=== PATIENT | female | born 1955 | race Native Hawaiian/Other Pacific Islander ===

== ENCOUNTER 2018-12-24 23:40 | Emergency (ER) | payer BC ==
[~2018-12-24] VITALS: Ht 162.6 cm; Wt 90.7 kg
[2018-12-24] MEDS ORDERED: PANTOPRAZOLE 40MG TA PO (23:53)
[2018-12-24] MEDS ORDERED: ESTR0.6211 PO (23:54)
[2018-12-24] MEDS ORDERED: CLON0.5T36 PO (23:54)
[2018-12-24] MEDS ORDERED: LEXAPRO20 MG PO (23:54)
[2018-12-24] MEDS ORDERED: ONDA4TAB3 PO (23:55)
[2018-12-25 00:40] LABS: PLATELET COUNT 187 K/uL (152-353)
[2018-12-25 01:01] LABS: POTASSIUM 4.4 mmol/L (3.6-5.2); SODIUM 139 mmol/L (136-145)
[2018-12-25 02:31] VITALS: BP 184/88; TEMP 97.3
== END 2018-12-25 02:36 | disposition home or self-care (01) ==
LOC: ED 23:40
PROVIDERS: Family Medicine
DX: R11.0 Nausea (principal); R10.13 Epigastric pain; R10.32 Left lower quadrant pain
CPT/HCPCS: 74022; 80053; 82150; 82550; 82553; 83690; 84484; 85027; 93005; 96365; 99284; J2405

== ENCOUNTER 2019-10-15 12:00 | Emergency (ER) | payer BC ==
[~2019-10-15] VITALS: Ht 162.6 cm; Wt 77.1 kg
[~2019-10-15 12:00] MED LIST: CLON0.5T36 PO; ESTR0.6211 PO; LEXAPRO20 MG PO; ONDA4TAB3 PO; PANTOPRAZOLE 40MG TA PO
[2019-10-15 12:09] VITALS: BP 134/82; TEMP 97.7
[2019-10-15] MEDS ORDERED: PROTONIX20 MG PO (12:20)
== END 2019-10-15 13:30 | disposition home or self-care (01) ==
LOC: ED 12:00
PROC: 0HQKXZZ Repair Right Lower Leg Skin, External Approach (ICD-10-PCS; principal; 2019-10-15)
DX: S81.811A Laceration without foreign body, right lower leg, initial encounter (principal); S86.911A Strain of unspecified muscle(s) and tendon(s) at lower leg level, right leg, initial encounter; W01.0XXA Fall on same level from slipping, tripping and stumbling without subsequent striking against object, initial encounter; Y92.098 Other place in other non-institutional residence as the place of occurrence of the external cause
CPT/HCPCS: 90715; 99283; J1885

== ENCOUNTER 2022-12-18 09:03 | Outpatient (CLI) | payer BC ==
[~2022-12-18 09:03] MED LIST changes: +PROTONIX20 MG PO
== END 2022-12-18 21:18 | disposition home or self-care (01) ==
LOC: CT 09:03
PROVIDERS: ATTEND Internal Medicine
DX: R10.9 Unspecified abdominal pain (principal); R11.0 Nausea
CPT/HCPCS: Q9963

== ENCOUNTER 2023-04-07 11:37 | Outpatient (CLI) | payer BC | END 2023-04-07 19:20 | disposition home or self-care (01) | LOC: RAD 11:37 | PROVIDERS: ATTEND Internal Medicine | DX: N95.8 Other specified menopausal and perimenopausal disorders (principal) ==

== ENCOUNTER 2023-07-06 16:01 | Outpatient (CLI) | payer BC | END 2023-07-06 22:09 | disposition home or self-care (01) | LOC: CT 16:01 | PROVIDERS: ATTEND Internal Medicine | DX: R11.0 Nausea (principal); R10.9 Unspecified abdominal pain | CPT/HCPCS: 36415; 82565; 84520; Q9963 ==